=== PATIENT | female | born 1985 | race Caucasian/White ===

== ENCOUNTER 2025-01-03 03:11 | Emergency (ER) | payer BC, SELFPAY ==
[2025-01-03 03:17] VITALS: BP 124/90
[2025-01-03 03:56] VITALS: BP 119/83
--- NOTE | 2025-01-03 04:01 | ED.GENMED ---
History of Present Illness
General
Chief Complaint: Headache
Source: patient
Exam Limitations: none
Time Seen by Provider: 01/03/25 03:48
History of Present Illness
History of Present Illness:
See MDM
Past History
Past History
ED Past Medical History: Psychiatric
ED Past Surgical History: and Other
Social History
Tobacco: Non-smoker
Alcohol: None
Drug: None
Personal:
Living: with family
Family History
Family History: Other (Strong family history of migraine with her sister and father)
Phy Exam
Physical Exam
Physical Exam:
See MDM
Course
Orders/Labs/Results
Orders:
Orders
01/03/25 04:00
0.9% Sodium Chloride 1000 ml [Nss] 1,000 ml IV BOLUS
Diphenhydramine [Benadryl] 25 mg IV NOW STA
Ketorolac [Toradol] 30 mg IV NOW STA
Metoclopramide [Reglan] 10 mg IV NOW STA
Ondansetron Injectable [Zofran] 4 mg IV NOW STA
01/03/25 04:11
CPK [Creatine Phosphokinase] Urgent
Complete Blood Count/With Diff Urgent
Comprehensive Metabolic Panel Urgent
Abnormal Lab Results
01/03/25
04:11
MCH 31.4 H pg
(27.0-31.0)
MPV 10.5 H fL
(7.4-10.4)
Chloride 110 H mmol/L
(98-107)
Glucose 130 H mg/dl
(70-99)
Creatine Kinase 136 H U/L
(30-135)
01/03/25 04:11
01/03/25 04:11
Vital Signs
Initial and Last Documented VS:
Initial Vital Signs
Temp Pulse Resp BP Pulse Ox
97.5 F 83 18 124/90 97
01/03/25 03:17 01/03/25 03:17 01/03/25 03:17 01/03/25 03:17 01/03/25 03:17
Last Documented Vital Signs
Temp Pulse Resp BP Pulse Ox
97.5 F 89 14 119/83 98
01/03/25 03:56 01/03/25 04:45 01/03/25 04:45 01/03/25 03:56 01/03/25 04:45
MDM/Problems Addressed
Differential Diagnosis Includes:
Note:
CHIEF COMPLAINT(S)
Headache.
HISTORY OF PRESENT ILLNESS
The patient is a 39-year-old female with a history of migraines, who presents with a severe headache. The patient reports that the headache onset was after spending four hours in the sun last evening, leading to a 'horrible headache.' The patient
indicates past occurrences but mentions that the migraines have been well-controlled at home since a visit in 2020. She describes the current headache as different, possibly due to recent sun exposure. Initial evaluation and vital signs indicated no
immediate life-threatening conditions.
PHYSICAL EXAM
General: Mildly uncomfortable, lying in bed with hands covering her eyes
HEENT: protecting airway. Pupils equal reactive. EOMI
Neck: appears supple
CV: No evidence of cyanosis
Resp: No accessory muscle use
Abd: Non-distended
Extremities: No deformities
Neuro: alert
Psych: Normal affect
Skin: Intact
PLAN
The patient will receive intravenous fluids and a 'migraine cocktail' consisting of ketorolac, metoclopramide, and diphenhydramine. Ondansetron will also be administered for additional symptom control as needed. Basic labs will be conducted to
ensure normal kidney function and assess related enzymes. Further treatment and evaluation will be dependent on patient response to current interventions.
DIFFERENTIAL DIAGNOSIS
The Differential Diagnosis includes, in no particular order and is not limited to:
1. Migraine headache
2. Tension headache
3. Cluster headache
4. Sinus headache
5. Dehydration-related headache
6. Heat exhaustion or heatstroke
CARE-UPDATE
01/03/25 - 04:53
Patient appears improved with medication, though experiencing some drowsiness as a side effect. Laboratory results are normal, showing no signs of dehydration or kidney injury. Continue monitoring progress post-fluid administration.
Disposition:
SUMMARY OF ENCOUNTER
The patient, a 39-year-old female with a history of migraines, presented to the emergency department with a severe headache following sun exposure. The headache was described as different from her typical migraines, raising concerns about possible
dehydration or sun-related exacerbation. After initial evaluation, she was treated with intravenous fluids and a 'migraine cocktail' comprising ketorolac, metoclopramide, and diphenhydramine. Ondansetron was administered as needed for symptom
control. Basic labs were conducted to assess her condition.
DISPOSITION
The patient was monitored in the emergency department and, upon reassessment, expressed feeling much better and comfortable to be discharged home. Her laboratory work was reviewed and showed no significant abnormalities.
EMERGENCY TREATMENTS ADMINISTERED
Intravenous fluids, ketorolac, metoclopramide, diphenhydramine, and ondansetron as needed.
REASSESSMENT
Multiple reassessments indicated the patient felt much better and more comfortable after receiving treatment.
MEDICATION RECONCILIATION
Ketorolac, metoclopramide, diphenhydramine, and ondansetron were administered in the emergency department.
MEDICAL DECISION MAKING
1. Number & Complexity of Problems: Chronic conditions affecting care included a history of migraines. Differential diagnoses considered were migraine headache, and dehydration-related headache, among others.
2. Data Reviewed: Basic labs were ordered and interpreted; results indicated no significant dehydration or kidney injury.
3. Risk: Outpatient management was considered appropriate based on the reassuring work-up, symptom control, and patient stability.
PATHOLOGIES TO CONSIDER
Subarachnoid hemorrhage, meningitis, heat exhaustion or heatstroke were considered but ruled out based on the clinical presentation and response to treatment.
*Pulse Oximetry
SaO2: 96
Oxygen Mode of Delivery: Room air
Patient hypoxic: no
*Critical Care Note
Total Time (30-74mins, 75-104mins- exclusive of procedures): Not Applicable
ED Attending Note
-
Portions of this chart may have been created with voice recognition software.� Occasional wrong word or��sound alike� substitutions may have occurred due to the inherent limitations of voice recognition software.
Discharge Plan
Departure
Patient Disposition: Home (Routine Discharge)
Date of Disposition: 01/03/25
Time of Disposition: 05:41
Patient with high blood pressure during this ER visit?: No
Discharge Problem:
Migraine
Instructions: Migraines (DC)
Prescriptions:
No Action
paroxetine HCl 20 MG tablet
20 mg PO DAILY
oxycodone-acetaminophen 5 MG/325 MG tablet
1 tab PO Q4HPRN PRN (Reason: moderate pain) Qty: 15 0RF
ibuprofen 600 MG tablet
600 mg PO Q4HPRN PRN (Reason: cramps) 0RF
Referrals:
Roshan Tran DO [Family Provider, Family Practice]
Activity Restrictions/Additional Instructions:
Please return for any worsening symptoms.
You may return at any time if you have further concerns.
Please follow up with your doctor at the first available appointment, preferably this week.
Thank you for choosing [facility].
Interventions
Interventions:
*Risk Screen - Suicide Last Done: 01/03/25 03:17
*General Assessment Last Done: 01/03/25 03:17
*Neglect/Abuse Screening Last Done: 01/03/25 03:17
*ED- Fall Risk Assessment Last Done: 01/03/25 03:58
*ED COVID-19 Vaccine History Last Done: 01/03/25 03:17
ED- Neurological Assessment Last Done: 01/03/25 03:57
Discharge Date and Time
Print Language: THAI
[2025-01-03 04:25] LABS: % Basophils 0.5 % (0-2); % Eosinophils 5.4 % (0-6); % Immature Granulocytes 0.3 % (0-0.5); % Lymphocytes 33.2 % (20.5-51.1); % Neutrophils 55.6 % (42.2-75.2); Absolute Eosinophils 0.4 10^3/uL (0-0.7); Absolute Lymphocytes 2.2 10^3/uL (1.2-3.4); Absolute Monocytes 0.3 10^3/uL (0.1-0.6); Absolute Neutrophils 3.6 10^3/uL (1.4-6.5); Hematocrit 40.3 % (37.0-47.0); Mean Corp Hgb Conc. 34.7 g/dL (33.0-37.0); Mean Corpuscular Hgb 31.4 pg (27.0-31.0); Mean Corpuscular Volume 90.4 fL (81.0-99.0); Mean Platelet Volume 10.5 fL (7.4-10.4); Nucleated Red Blood Cells % 0 %; Platelet Count 237 10^3/uL (130-400); Red Blood Cell Count 4.46 10^6/uL (4.20-5.40); Red Cell Dist. Width 12.1 % (11.5-14.5); White Blood Cell Count 6.5 10^3/uL (4.8-10.8)
[2025-01-03] MEDS: NSS 1000 IV (04:28)
[2025-01-03] MEDS: TORADOL 30 MG IV (04:28)
[2025-01-03] MEDS: ZOFRAN 4 MG IV (04:30)
[2025-01-03] MEDS: BENADRYL 25 MG IV (04:32)
[2025-01-03] MEDS: REGLAN 10 MG IV (04:32)
[2025-01-03 04:44] LABS: ALT (SGPT) 22 U/L (0-35); AST (SGOT) 23 U/L (14-36); Albumin 4.7 g/dl (3.5-5.0); Alkaline Phosphatase 45 U/L (38-126); Blood Urea Nitrogen 17 mg/dl (7-17); Calcium 9.5 mg/dl (8.4-10.2); Carbon Dioxide 26 mmol/L (22-30); Chloride 110 mmol/L (98-107); Creatine Phosphokinase 136 U/L (30-135); Glucose 130 mg/dl (70-99); Potassium 3.9 mmol/L (3.5-5.1); Sodium 145 mmol/L (135-145); Total Bilirubin 0.5 mg/dl (0.2-1.3); Total Protein 7.3 g/dl (6.3-8.2); eGFR > 60.00
== END 2025-01-03 05:54 | disposition home or self-care (01) ==
LOC: EMR 03:11
PROVIDERS: EMERGENCY PHYSICIAN Student in an Organized Health Care Education/Training Program; FAMILY PHYSICIAN Family Medicine
DX: G43.909 Migraine, unspecified, not intractable, without status migrainosus (principal)
CPT/HCPCS: 96374; 96375; 96361; 99284; 80053; 82550; 85025